=== PATIENT | male | born 1940 | race Hispanic/Latino ===

== ENCOUNTER 2018-10-19 13:50 | Outpatient (CLI) | payer MEDICARE ==
--- NOTE | 2018-10-19 14:57 | RAD ---
CHEST TWO VIEWS: History: Dyspnea. Comparison: 10-06-16 FINDINGS: Heart size is within normal limits. There are atherosclerotic changes of the aorta. Chronic lung mazariegos ges are seen. The bones appear demineralized. IMPRESSION: Chronic lung change. Stable chest. POS: RENU
== END 2018-10-19 13:51 | disposition home or self-care (01) ==
LOC: RAD 13:50
PROVIDERS: ATTEND Internal Medicine Pulmonary Disease
DX: R06.00 Dyspnea, unspecified (principal)
CPT/HCPCS: 71046

== ENCOUNTER 2019-10-03 12:49 | Outpatient (CLI) | payer MEDICARE ==
--- NOTE | 2019-10-03 13:16 | RAD ---
RADIOGRAPH CHEST 2 VIEWS: Date: 10/03/19 Time: 1300 hours HISTORY: 79-year-old male with dyspnea. COMPARISON: 10/19/18. FINDINGS: Bilateral diffuse mild interstitial densities which appear chronic. Apparently new or worse superimpo sed multifocal patchy nodular faint ill-defined pulmonary opacities. No pleural effusion or cardiomeg josé luis. No pneumothorax. IMPRESSION: 1. Apparently new or worsening nodular interstitial pattern, superimposed on chronic interstitial ch anges, may represent possible infection with atypical microorganism. 2. Recommend follow-up. IRMA [] POS: PAM
== END 2019-10-03 12:50 | disposition home or self-care (01) ==
LOC: RAD 12:49
PROVIDERS: ATTEND Internal Medicine Pulmonary Disease
DX: R06.00 Dyspnea, unspecified (principal)
CPT/HCPCS: 71046

== ENCOUNTER 2021-02-26 11:06 | Outpatient (CLI) | payer MEDICARE | END 2021-02-26 11:07 | disposition home or self-care (01) | LOC: BICRAD 11:06 | PROVIDERS: ATTEND Internal Medicine Pulmonary Disease | DX: R06.00 Dyspnea, unspecified (principal) | CPT/HCPCS: 71046 ==

== ENCOUNTER 2022-03-26 09:33 | Outpatient (CLI) | payer MEDICARE | END 2022-03-26 09:34 | disposition home or self-care (01) | LOC: RAD 09:33 | PROVIDERS: ATTEND Internal Medicine Critical Care Medicine | DX: R06.00 Dyspnea, unspecified (principal) | CPT/HCPCS: 71046 ==

== ENCOUNTER 2023-12-28 10:47 | Outpatient (CLI) | payer MEDICARE | END 2023-12-28 10:48 | disposition home or self-care (01) | LOC: RAD 10:47 | PROVIDERS: ATTEND Internal Medicine Critical Care Medicine | DX: R06.00 Dyspnea, unspecified (principal); J98.4 Other disorders of lung; R91.8 Other nonspecific abnormal finding of lung field; M43.8X5 Other specified deforming dorsopathies, thoracolumbar region | CPT/HCPCS: 71046 ==